=== PATIENT | male | born 1980 ===

== ENCOUNTER 2018-02-16 09:58 | Day surgery (SDC) | payer OTHER, MEDICAID ==
[~2018-02-16 09:58] MED LIST: ROCURONIUM BROMIDE 10 MG/ML SOL IV ONE; SUCCINYLCHOLINE CHLORIDE 20 MG/ML SOL IV ONE
[2018-02-16] MEDS ORDERED: FENTANYL 100MCG/2ML SOL ONE (11:09)
[2018-02-16] MEDS ORDERED: LIDOCAINE HCL 1% MPF 30 SOL ONE (11:10)
[2018-02-16] MEDS ORDERED: PROPOFOL 10 MG/ML 200 MG/20 ML EMU IV ONE (11:10)
[2018-02-16] MEDS ORDERED: BUPIVACAINE LIPOSOME 20 ML SUS ONE (11:12)
[2018-02-16] MEDS ORDERED: EPHEDRINE SULFATE 50 MG/ML SOL ONE (11:41)
[2018-02-16] MEDS: FENTANYL 100MCG/2ML SOL ONE ×4 (12:03→12:40)
[2018-02-16 12:57] VITALS: TEMP 99
[2018-02-16] MEDS ORDERED: ONDANSETRON HCL 4 MG/2 ML SOL ONE (13:56)
[2018-02-16 14:13] VITALS: RESP 18
[2018-02-16] MEDS ORDERED: KETOROLAC TROMETHAMINE 30 MG/ML SOL ONE (14:40)
[2018-02-16 15:28] VITALS: BP 146/78; PULSE 72; O2SAT 97
== END 2018-02-16 15:29 | disposition home or self-care (01) | DRG 395 ==
LOC: SURG 09:58
PROVIDERS: ATTEND Surgery
DX: K64.8 Other hemorrhoids (principal)
CPT/HCPCS: 99001; J0330; J1885; J2405; J3010; J2001; J2704; J3490